=== PATIENT | male | born 1975 | race Caucasian/White ===

== ENCOUNTER 2016-10-22 00:15 | Inpatient (IN) | payer OTHER ==
[~2016-10-22] VITALS: Ht 195.5 cm; Wt 177.0 kg
[2016-10-22] VITALS (13 sets, daily range): BP systolic 115–138; BP diastolic 69–97
--- NOTE | ~2016-10-22 | O ---
[place], [place] OPERATIVE NOTE [id number] UNIT #: [id number] ROOM: [facility] DOCTOR: KENNY ASHBY MD BIRTHDATE: [birth year] DOS: 10/22/2016 PREOPERATIVE DIAGNOSIS: Acute appendicitis. POSTOPERATIVE DIAGNOSIS: Acute appendicitis. PROCEDURE: Laparoscopic appendectomy. SURGEON: Kenny Ashby MD DIAMOND SIZER AND GRADER: MS3. ANESTHESIA: General with endotracheal intubation. INDICATIONS: This is a 41-year-old male who presented to the Emergency Room with abdominal pain and was found to have acute appendicitis. It was decided to take the patient to the operating room for a laparoscopic possible open appendectomy. The procedure and its complications were explained to the patient in detail preoperatively. Complications that were discussed included but were not limited to bleeding, infection, hematoma/seroma/abscess formation, prolonged postoperative pain, and damage to underlying vital structures agreed to proceed. DESCRIPTION OF PROCEDURE: After identifying the patient, the patient was brought to the operating suite and laid in the supine position. After induction of general anesthesia, a timeout procedure was called and the left upper extremity was tucked to the patient's side. A Suero catheter was placed and the parts were then painted and draped in the usual sterile fashion. An incision in the region of the umbilicus was made. The skin and the subcutaneous tissue were incised in the line of the incision. The fascial edges were held apart with the help of 2 stay sutures with 0 Vicryl. The peritoneum was entered and a Paulino port was introduced, a pneumoperitoneum was created. A left lower quadrant incision of 10 mm and a 5 mm incision was made in the suprapubic region and appropriate size ports were introduced. The patient was placed in Trendelenburg, right side up position. The cecum was identified and mobilized medially. The appendix was visualized and was found to be in post ileal position. It was held up with the help of an Endo [place] forceps. Thereafter, the base of the appendix as well as the mesoappendix was stapled across with the help of an Endo-DONYA stapler. The appendix was placed in an EndoCatch bag and removed from the peritoneal cavity and sent for histopathological diagnosis. The stump of the appendix was visualized for bleeding and there was no bleeding seen. Saline was used for irrigation and the irrigation fluid was then sucked away after hemostasis was confirmed again in the stump of the appendix. The left lower quadrant and the suprapubic ports were removed and there was no bleeding seen. The umbilical port was also removed and the 2 stay sutures were tied together. An additional #0 Vicryl stitch was used to close the fascial defect. Thereafter, local anesthesia was infiltrated in all the 3 incisions (1% plain lidocaine) and the skin edges were then approximated with the help of 4-0 Vicryl in a subcuticular running fashion. Dressings were placed on all the three incisions. The patient tolerated the procedure well. There were no [place], [place] OPERATIVE NOTE NAME: ALLEGRA HAWK UNIT #: [id number] ROOM: [facility] DOCTOR: KENNY ASHBY MD BIRTHDATE: [birth year] complications. He was extubated uneventfully and the Suero catheter was also removed and taken to the recovery room in stable fashion. Blood loss was less than [address] Kenny Ashby, the attending surgeon, was present throughout the operating case. Kenny Ashby MD CM:OPRECORD:OPERATIVE NOTE [id number] KENNY ASHBY MD 10/22/16 1040 interface
[~2016-10-22 00:15] MED LIST: ANAPROX DS550 MG PO; BACTROBAN OINT22 GM PO; DAYPRO600 M1 PO; FLEXARIL; FLEXERIL5 MG PO; HYDROCODONE BIT1 T11 PO; ISOSORBIDE MONO PO; LOPRESSOR25 MG; LORAT; LORATADINE10 MG PO; Lopressor25 MG PO; NEURONTIN100 MG; NEURONTIN100 MG PO; NO HOMEMEDS; OXYCONTIN15 MG PO; PERCO; PERCOCET 500 MG1 TAB PO; PREDNISONE10 MG PO; PRILOSEC; PRILOSEC20 M1 PO; ROBAXIN-750750 MG PO; ROBAXIN750 MG PO; SYNTHROID; SYNTHROID0.025 MG PO; SYNTHROID0.05 MG PO; ULTRAM50 MG PO; VENTOLIN H0.09 MG/AC INH; VICODIN 500 MG-1 TAB PO; Zofran4 MG PO
[2016-10-22] MEDS ORDERED: OMEPRAZOLE D/R20 MG PO (00:25)
[2016-10-22 01:08] LABS: BASO # 0.1 10*3/uL (0.0-0.1); BASO % 0.5 % (0.0-1.0); EOS # 0.2 10*3/uL (0.0-0.4); EOS % 1.4 % (1.0-4.0); HEMATOCRIT 44.9 % (42.0-52.0); HEMOGLOBIN 15.4 g/dl (14.0-18.0); IG # 0.1 10*3/uL (0.0-0.1); LYMPH # 3.7 10*3/uL (1.3-4.4); LYMPH % 24.1 % (27.0-41.0); MEAN CELL VOLUME 81.9 fl (80.0-94.0); MEAN CORPUSCULAR HGB 28.1 pg (27.0-31.0); MEAN CORPUSCULAR HGB CONC 34.3 g/dl (33.0-37.0); MEAN PLATELET VOLUME 10.1 fl (9.6-12.3); MONO # 1.3 10*3/uL (0.1-1.0); MONO % 8.7 % (3.0-9.0); NEUT # 9.9 10*3/uL (2.3-7.9); NEUT % 64.5 % (47.0-73.0); PLATELET COUNT AUTOMATED 226 10*3/uL (130-400); RED BLOOD COUNT 5.48 10*6/uL (4.50-5.90); RED CELL DISTRI WIDTH 13.4 % (0-14.5); WHITE BLOOD COUNT 15.3 10*3/uL (4.8-10.8)
[2016-10-22 01:41] LABS: ALBUMIN 3.3 gm/dl (3.1-4.5); ALKALINE PHOSPHATASE 70 U/L (45-117); BILIRUBIN, TOTAL 0.3 mg/dl (0.2-1.0); BUN 15 mg/dl (7-24); C-REACTIVE PROTEIN 2.02 MG/DL (0-0.3); CARBON DIOXIDE 26 mmol/L (21-32); CHLORIDE 105 mmol/L (98-107); EST GLOM FILT AFRICAN AMERICAN > 60 ml/min; GLUCOSE 127 mg/dL (65-99); POTASSIUM 3.7 mmol/L (3.5-5.1); SGOT/AST 15 IU/L (3-35); SGPT/ALT 29 U/L (12-78); SODIUM 141 mmol/L (136-145); TOTAL PROTEIN 6.9 gm/dL (6.4-8.2)
[2016-10-22 06:30] LABS: BASO # 0.1 10*3/uL (0.0-0.1); BASO % 0.5 % (0.0-1.0); EOS # 0.2 10*3/uL (0.0-0.4); EOS % 1.7 % (1.0-4.0); HEMATOCRIT 44.2 % (42.0-52.0); HEMOGLOBIN 14.5 g/dl (14.0-18.0); IG # 0.1 10*3/uL (0.0-0.1); LYMPH # 2.9 10*3/uL (1.3-4.4); LYMPH % 24.8 % (27.0-41.0); MEAN CELL VOLUME 83.7 fl (80.0-94.0); MEAN CORPUSCULAR HGB 27.5 pg (27.0-31.0); MEAN CORPUSCULAR HGB CONC 32.8 g/dl (33.0-37.0); MEAN PLATELET VOLUME 9.9 fl (9.6-12.3); MONO # 1.1 10*3/uL (0.1-1.0); MONO % 9.4 % (3.0-9.0); NEUT # 7.2 10*3/uL (2.3-7.9); NEUT % 62.6 % (47.0-73.0); PLATELET COUNT AUTOMATED 200 10*3/uL (130-400); RED BLOOD COUNT 5.28 10*6/uL (4.50-5.90); RED CELL DISTRI WIDTH 13.2 % (0-14.5); WHITE BLOOD COUNT 11.5 10*3/uL (4.8-10.8)
[2016-10-22 07:03] LABS: BUN 14 mg/dl (7-24); CARBON DIOXIDE 24 mmol/L (21-32); CHLORIDE 104 mmol/L (98-107); CHOLESTEROL 125 mg/dL (<200); EST GLOM FILT AFRICAN AMERICAN > 60 ml/min; FREE T4 1.16 ng/dl (0.76-1.46); GLUCOSE 123 mg/dL (65-99); HDL CHOLESTEROL 32 mg/dl (40-60); LDL CHOLESTEROL 73 mg/dL (9-159); MAGNESIUM 1.9 mg/dL (1.5-2.1); SODIUM 141 mmol/L (136-145); TRIGLYCERIDES 102 mg/dl (<150); VLDL CHOLESTEROL 20 mg/dL (6-40)
[2016-10-22 07:12] LABS: PROTHROMBIN TIME 10.8 SECONDS (9.0-12.4)
[2016-10-22] MEDS ORDERED: ZANTAC 150150 MG PO (07:41)
[2016-10-22 07:50] LABS: FOLIC ACID 6.82 ng/mL (>5.38); VITAMIN D, 25-HYDROXY 11.4 ng/mL (30-100)
[2016-10-22 08:32] LABS: BILIRUBIN NEGATIVE (NEGATIVE); BLOOD NEGATIVE (NEGATIVE); CLARITY SL CLOUDY (CLEAR); COLOR YELLOW (YELLOW); GLUCOSE NEGATIVE (NEGATIVE); KETONE NEGATIVE (NEGATIVE); LEUKO ESTERASE NEGATIVE (NEGATIVE); NITRITE NEGATIVE (NEGATIVE); PROTEIN TRACE (NEGATIVE); SPECIFIC GRAVITY 1.025 (1.005-1.030)
[2016-10-22 08:38] LABS: RBC 0-2 rbc/hpf (0-2); URINE REFLEX COMMENT NO (NO); WBC 0-2 wbc/hpf (0-5)
[2016-10-23] VITALS: BP 108/56
[2016-10-23 06:36] LABS: BASO % 0.2 % (0.0-1.0); HEMATOCRIT 42.3 % (42.0-52.0); HEMOGLOBIN 14.2 g/dl (14.0-18.0); IG # 0.2 10*3/uL (0.0-0.1); LYMPH # 2.2 10*3/uL (1.3-4.4); LYMPH % 13.4 % (27.0-41.0); MEAN CELL VOLUME 83.4 fl (80.0-94.0); MEAN CORPUSCULAR HGB CONC 33.6 g/dl (33.0-37.0); MONO % 6.3 % (3.0-9.0); NEUT # 12.9 10*3/uL (2.3-7.9); PLATELET COUNT AUTOMATED 232 10*3/uL (130-400); RED BLOOD COUNT 5.07 10*6/uL (4.50-5.90); RED CELL DISTRI WIDTH 13.2 % (0-14.5); WHITE BLOOD COUNT 16.3 10*3/uL (4.8-10.8)
[2016-10-23 07:08] LABS: CHLORIDE 108 mmol/L (98-107); POTASSIUM 4.1 mmol/L (3.5-5.1); SODIUM 143 mmol/L (136-145)
[2016-10-23 07:16] LABS: ALKALINE PHOSPHATASE 65 U/L (45-117); BILIRUBIN, TOTAL 0.4 mg/dl (0.2-1.0); BUN 12 mg/dl (7-24); CARBON DIOXIDE 24 mmol/L (21-32); EST GLOM FILT AFRICAN AMERICAN > 60 ml/min; GLUCOSE 135 mg/dL (65-99); SGOT/AST 33 IU/L (3-35); SGPT/ALT 96 U/L (12-78); TOTAL PROTEIN 6.7 gm/dL (6.4-8.2)
[2016-10-23 08:00] VITALS: BP 108/54
[2016-10-23 12:00] VITALS: BP 114/53
[2016-10-23] MEDS ORDERED: CIPRO500 MG PO (12:30)
[2016-10-23] MEDS ORDERED: FLAGYL500 MG PO (12:30)
[2016-10-23] MEDS ORDERED: B12,B-12,B 12500 MC1 PO (12:30)
[2016-10-23] MEDS ORDERED: VITAMIN D1000 IU PO (12:30)
[2016-10-23] MEDS ORDERED: Synthroid,Levo50 MCG PO (12:30)
[2016-10-23] MEDS ORDERED: PERCOCET 325 MG1 TA2 PO (13:13)
== END 2016-10-23 13:28 | disposition home or self-care (01) | DRG 342 ==
LOC: ED 00:15 → EDHOLD 03:24 → 5E 03:37
PROVIDERS: Emergency Medicine Emergency Medical Services; Internal Medicine Hospice and Palliative Medicine; Surgery
PROC: 0DTJ4ZZ Resection of Appendix, Percutaneous Endoscopic Approach (ICD-10-PCS; principal; 2016-10-22)
DX: K35.80 Unspecified acute appendicitis (principal); Z68.42 Body mass index [BMI] 45.0-49.9, adult; K76.0 Fatty (change of) liver, not elsewhere classified; E66.01 Morbid (severe) obesity due to excess calories; D72.829 Elevated white blood cell count, unspecified; R73.9 Hyperglycemia, unspecified; J30.89 Other allergic rhinitis; K57.30 Diverticulosis of large intestine without perforation or abscess without bleeding; J30.1 Allergic rhinitis due to pollen; J45.909 Unspecified asthma, uncomplicated; K21.9 Gastro-esophageal reflux disease without esophagitis; Z90.49 Acquired absence of other specified parts of digestive tract; Z82.49 Family history of ischemic heart disease and other diseases of the circulatory system; Z82.5 Family history of asthma and other chronic lower respiratory diseases; Z79.51 Long term (current) use of inhaled steroids; Z79.1 Long term (current) use of non-steroidal anti-inflammatories (NSAID); Z79.899 Other long term (current) drug therapy

== ENCOUNTER 2017-04-01 17:28 | Emergency (ER) | payer OTHER ==
[~2017-04-01] VITALS: Ht 195.5 cm; Wt 176.9 kg
[~2017-04-01 17:28] MED LIST changes: +B12,B-12,B 12500 MC1 PO; +CIPRO500 MG PO; +FLAGYL500 MG PO; +OMEPRAZOLE D/R20 MG PO; +PERCOCET 325 MG1 TA2 PO; +Synthroid,Levo50 MCG PO; +VITAMIN D1000 IU PO; +ZANTAC 150150 MG PO
[2017-04-01 18:08] LABS: BASO # 0.1 10*3/uL (0.0-0.1); BASO % 0.5 % (0.0-1.0); EOS # 0.2 10*3/uL (0.0-0.4); EOS % 1.6 % (1.0-4.0); HEMATOCRIT 45.5 % (42.0-52.0); HEMOGLOBIN 15.2 g/dl (14.0-18.0); LYMPH # 3.5 10*3/uL (1.3-4.4); LYMPH % 28.6 % (27.0-41.0); MEAN CELL VOLUME 83.6 fl (80.0-94.0); MEAN CORPUSCULAR HGB 27.9 pg (27.0-31.0); MEAN CORPUSCULAR HGB CONC 33.4 g/dl (33.0-37.0); MONO # 1.2 10*3/uL (0.1-1.0); MONO % 9.6 % (3.0-9.0); NEUT # 7.1 10*3/uL (2.3-7.9); NEUT % 58.5 % (47.0-73.0); PLATELET COUNT AUTOMATED 220 10*3/uL (130-400); RED BLOOD COUNT 5.44 10*6/uL (4.50-5.90); RED CELL DISTRI WIDTH 13.2 % (0-14.5); WHITE BLOOD COUNT 12.1 10*3/uL (4.8-10.8)
[2017-04-01 18:16] LABS: ACT PARTIAL THROMBO TIME 24.7 SECONDS (20.8-31.5)
[2017-04-01 18:24] LABS: ALBUMIN 3.7 gm/dl (3.1-4.5); ALKALINE PHOSPHATASE 78 U/L (45-117); BUN 13 mg/dl (7-24); CHLORIDE 106 mmol/L (98-107); CKMB 0.7 ng/ml (0.5-3.6); CPK 105 U/L (39-308); CREATININE 0.97 mg/dL (0.70-1.30); LIPASE 85 U/L (73-393); POTASSIUM 3.9 mmol/L (3.5-5.1); SGOT/AST 19 IU/L (3-35); SGPT/ALT 33 U/L (12-78); SODIUM 137 mmol/L (136-145); TOTAL PROTEIN 7.4 gm/dL (6.4-8.2)
[2017-04-01 18:29] LABS: TROPONIN I < 0.015 ng/ml (<0.045)
[2017-04-01] MEDS ORDERED: KETOROLAC10 MG PO (20:23)
== END 2017-04-01 22:47 | disposition home or self-care (01) ==
LOC: ED 17:28
PROVIDERS: Emergency Medicine
DX: G43.909 Migraine, unspecified, not intractable, without status migrainosus (principal); K21.9 Gastro-esophageal reflux disease without esophagitis; J45.909 Unspecified asthma, uncomplicated

== ENCOUNTER 2017-07-24 10:29 | Inpatient (IN) | payer OTHER ==
[~2017-07-24] VITALS: Ht 195.5 cm; Wt 177.5 kg
[2017-07-24] VITALS (10 sets, daily range): BP systolic 94–141; BP diastolic 42–81
[~2017-07-24 10:29] MED LIST changes: +KETOROLAC10 MG PO
[2017-07-24 11:11] LABS: BASO % 0.3 % (0.0-1.0); EOS # 0.1 10*3/uL (0.0-0.4); EOS % 1.3 % (1.0-4.0); HEMATOCRIT 48.1 % (42.0-52.0); LYMPH # 1.1 10*3/uL (1.3-4.4); LYMPH % 14.4 % (27.0-41.0); MEAN CELL VOLUME 83.5 fl (80.0-94.0); MEAN CORPUSCULAR HGB 27.8 pg (27.0-31.0); MEAN CORPUSCULAR HGB CONC 33.3 g/dl (33.0-37.0); MONO # 0.7 10*3/uL (0.1-1.0); MONO % 9.8 % (3.0-9.0); NEUT # 5.4 10*3/uL (2.3-7.9); NEUT % 72.6 % (47.0-73.0); PLATELET COUNT AUTOMATED 168 10*3/uL (130-400); RED BLOOD COUNT 5.76 10*6/uL (4.50-5.90); RED CELL DISTRI WIDTH 13.2 % (0-14.5); WHITE BLOOD COUNT 7.4 10*3/uL (4.8-10.8)
[2017-07-24 11:22] LABS: ACT PARTIAL THROMBO TIME 24.3 SECONDS (20.8-31.5)
[2017-07-24 11:28] LABS: ALBUMIN 3.5 gm/dl (3.1-4.5); ALKALINE PHOSPHATASE 80 U/L (45-117); BUN 13 mg/dl (7-24); CHLORIDE 105 mmol/L (98-107); CREATININE 0.96 mg/dL (0.70-1.30); POTASSIUM 3.8 mmol/L (3.5-5.1); SGOT/AST 29 IU/L (3-35); SGPT/ALT 37 U/L (12-78); SODIUM 135 mmol/L (136-145); TOTAL PROTEIN 7.5 gm/dL (6.4-8.2)
[2017-07-24 11:29] LABS: TROPONIN I < 0.015 ng/ml (<0.045)
[2017-07-25 06:27] LABS: BASO % 0.5 % (0.0-1.0); EOS # 0.1 10*3/uL (0.0-0.4); HEMATOCRIT 44.8 % (42.0-52.0); HEMOGLOBIN 14.8 g/dl (14.0-18.0); LYMPH # 1.6 10*3/uL (1.3-4.4); LYMPH % 29.6 % (27.0-41.0); MEAN CELL VOLUME 85.2 fl (80.0-94.0); MEAN CORPUSCULAR HGB 28.1 pg (27.0-31.0); MEAN PLATELET VOLUME 9.9 fl (9.6-12.3); MONO # 0.9 10*3/uL (0.1-1.0); NEUT # 2.7 10*3/uL (2.3-7.9); NEUT % 49.3 % (47.0-73.0); PLATELET COUNT AUTOMATED 173 10*3/uL (130-400); RED BLOOD COUNT 5.26 10*6/uL (4.50-5.90); RED CELL DISTRI WIDTH 13.3 % (0-14.5); WHITE BLOOD COUNT 5.5 10*3/uL (4.8-10.8)
[2017-07-25 07:03] LABS: ALBUMIN 3.2 gm/dl (3.1-4.5); ALKALINE PHOSPHATASE 91 U/L (45-117); BUN 12 mg/dl (7-24); CHLORIDE 107 mmol/L (98-107); CHOLESTEROL 103 mg/dL (<200); CREATININE 0.86 mg/dL (0.70-1.30); HDL CHOLESTEROL 25 mg/dl (40-60); LDL CHOLESTEROL 64 mg/dL (9-159); PHOSPHOROUS 3.6 mg/dL (2.5-4.9); POTASSIUM 3.7 mmol/L (3.5-5.1); SGOT/AST 19 IU/L (3-35); SGPT/ALT 33 U/L (12-78); SODIUM 139 mmol/L (136-145); TOTAL PROTEIN 6.8 gm/dL (6.4-8.2); TRIGLYCERIDES 71 mg/dl (<150); VLDL CHOLESTEROL 14 mg/dL (6-40)
[2017-07-25 08:00] VITALS: BP 124/79
[2017-07-25 09:01] LABS: VITAMIN D, 25-HYDROXY 15.3 ng/mL (30-100)
[2017-07-25 12:00] VITALS: BP 125/91
[2017-07-25] MEDS ORDERED: VITAMIN D5000 UNI1 PO (13:52)
== END 2017-07-25 15:00 | disposition home or self-care (01) | DRG 313 ==
LOC: ED 10:29 → EDHOLD 12:20 → 5E 12:20
PROVIDERS: Emergency Medicine; Internal Medicine; ADMIT Emergency Medicine
PROC: 4A02XM4 Measurement of Cardiac Total Activity, External Approach (ICD-10-PCS; principal; 2017-07-25)
DX: R07.89 Other chest pain (principal); I25.2 Old myocardial infarction; J18.9 Pneumonia, unspecified organism; K76.0 Fatty (change of) liver, not elsewhere classified; R19.7 Diarrhea, unspecified; K21.9 Gastro-esophageal reflux disease without esophagitis; F41.9 Anxiety disorder, unspecified; D72.810 Lymphocytopenia; R73.9 Hyperglycemia, unspecified; J45.909 Unspecified asthma, uncomplicated; E66.01 Morbid (severe) obesity due to excess calories; G43.909 Migraine, unspecified, not intractable, without status migrainosus; E03.9 Hypothyroidism, unspecified; K57.90 Diverticulosis of intestine, part unspecified, without perforation or abscess without bleeding; Z90.49 Acquired absence of other specified parts of digestive tract; Z68.42 Body mass index [BMI] 45.0-49.9, adult; Z82.49 Family history of ischemic heart disease and other diseases of the circulatory system; Z83.3 Family history of diabetes mellitus; Z83.6 Family history of other diseases of the respiratory system

== ENCOUNTER → 2017-09-08 | Outpatient (CLI) | payer OTHER ==
[~2017-09-08] MED LIST changes: +VITAMIN D5000 UNI1 PO
== END | disposition home or self-care (01) ==
LOC: CT 08-26 10:00
DX: K76.0 Fatty (change of) liver, not elsewhere classified (principal); K42.9 Umbilical hernia without obstruction or gangrene; Z90.49 Acquired absence of other specified parts of digestive tract

== ENCOUNTER 2017-11-13 23:40 | Emergency (ER) | payer OTHER ==
[~2017-11-13] VITALS: Wt 104.3 kg
[2017-11-14 00:26] LABS: BASO % 0.3 % (0.0-1.0); EOS # 0.1 10*3/uL (0.0-0.4); EOS % 1.1 % (1.0-4.0); HEMATOCRIT 48.6 % (42.0-52.0); HEMOGLOBIN 16.4 g/dl (14.0-18.0); LYMPH # 2.2 10*3/uL (1.3-4.4); MEAN CELL VOLUME 81.7 fl (80.0-94.0); MEAN CORPUSCULAR HGB 27.6 pg (27.0-31.0); MEAN CORPUSCULAR HGB CONC 33.7 g/dl (33.0-37.0); MEAN PLATELET VOLUME 9.8 fl (9.6-12.3); MONO # 0.8 10*3/uL (0.1-1.0); MONO % 7.4 % (3.0-9.0); NEUT # 7.8 10*3/uL (2.3-7.9); NEUT % 70.6 % (47.0-73.0); PLATELET COUNT AUTOMATED 205 10*3/uL (130-400); RED BLOOD COUNT 5.95 10*6/uL (4.50-5.90); RED CELL DISTRI WIDTH 13.1 % (0-14.5); WHITE BLOOD COUNT 11.1 10*3/uL (4.8-10.8)
[2017-11-14 00:42] LABS: ALBUMIN 3.5 gm/dl (3.1-4.5); ALKALINE PHOSPHATASE 81 U/L (45-117); BUN 16 mg/dl (7-24); CHLORIDE 107 mmol/L (98-107); CREATININE 1.09 mg/dL (0.70-1.30); LIPASE 225 U/L (73-393); SGOT/AST 51 IU/L (3-35); SGPT/ALT 85 U/L (12-78); SODIUM 139 mmol/L (136-145); TOTAL PROTEIN 7.4 gm/dL (6.4-8.2)
[2017-11-14] MEDS ORDERED: DICYCLOMINE HCL10 MG PO (02:26)
== END 2017-11-14 02:56 | disposition home or self-care (01) ==
LOC: ED 23:40
PROVIDERS: Nurse Practitioner Family
DX: K57.30 Diverticulosis of large intestine without perforation or abscess without bleeding (principal); R10.32 Left lower quadrant pain; E66.01 Morbid (severe) obesity due to excess calories; J45.909 Unspecified asthma, uncomplicated; K21.9 Gastro-esophageal reflux disease without esophagitis; E03.9 Hypothyroidism, unspecified; G43.909 Migraine, unspecified, not intractable, without status migrainosus; Z90.49 Acquired absence of other specified parts of digestive tract; Z98.890 Other specified postprocedural states; Z68.42 Body mass index [BMI] 45.0-49.9, adult; Z79.899 Other long term (current) drug therapy

== ENCOUNTER → 2018-02-13 | Day surgery (SDC) | payer OTHER ==
[2018-02-10 12:52] LABS: BASO % 0.4 % (0.0-1.0); EOS # 0.1 10*3/uL (0.0-0.4); EOS % 1.4 % (1.0-4.0); HEMATOCRIT 48.1 % (42.0-52.0); HEMOGLOBIN 15.5 g/dl (14.0-18.0); LYMPH # 2.7 10*3/uL (1.3-4.4); LYMPH % 29.1 % (27.0-41.0); MEAN CELL VOLUME 84.4 fl (80.0-94.0); MEAN CORPUSCULAR HGB 27.2 pg (27.0-31.0); MEAN CORPUSCULAR HGB CONC 32.2 g/dl (33.0-37.0); MONO # 0.8 10*3/uL (0.1-1.0); NEUT # 5.6 10*3/uL (2.3-7.9); NEUT % 59.5 % (47.0-73.0); PLATELET COUNT AUTOMATED 211 10*3/uL (130-400); RED CELL DISTRI WIDTH 13.9 % (0-14.5); WHITE BLOOD COUNT 9.3 10*3/uL (4.8-10.8)
[2018-02-10 13:08] LABS: CHLORIDE 109 mmol/L (98-107); SODIUM 141 mmol/L (136-145)
[2018-02-10 13:23] LABS: ACT PARTIAL THROMBO TIME 22.4 SECONDS (20.8-31.5); INTERNATIONAL NORM RATIO 0.9 (2.0-3.5)
[2018-02-10 13:38] LABS: BUN 10 mg/dl (7-24); CREATININE 0.89 mg/dL (0.70-1.30); POTASSIUM 4.4 mmol/L (3.5-5.1)
[~2018-02-13] VITALS: Ht 195.5 cm; Wt 176.9 kg
[2018-02-13] VITALS (7 sets, daily range): BP systolic 110–145; BP diastolic 69–78
[~2018-02-13] MED LIST changes: +DICYCLOMINE HCL10 MG PO; +MULTIPLE VITAM1 EAC1 PO; +Percocet 325 MG1 TAB PO
--- NOTE | ~2018-02-13 | O ---
[place], [place] OPERATIVE NOTE NAME: ALLEGRA HAWK UNIT #: [id number] ROOM: DOCTOR: KENNY ASHBY MD BIRTHDATE: [birth year] DOS: 02/13/2018 PREOPERATIVE DIAGNOSIS: Umbilical hernia. POSTOPERATIVE DIAGNOSIS: Umbilical hernia. PROCEDURE: Umbilical hernia repair with mesh (Ventralex, medium). SURGEON: Kenny Ashby MD STEM LEAD FORMER: STEPHANIE. ANESTHESIA: General with endotracheal intubation. INDICATIONS: This is a 42-year-old gentleman with a history of an umbilical hernia who is here for the above-mentioned procedure. The procedure and its complications were explained to the patient in detail preoperatively. Complications that were discussed included but were not limited to bleeding, infection, hematoma/seroma/abscess formation and prolonged postoperative pain, recurrence and damage to lying vital structures. He agreed to proceed. DESCRIPTION OF PROCEDURE: After identifying the patient, the patient was brought to the operating suite and laid in the supine position. After induction of general anesthesia, a timeout procedure was called and the parts were then painted and draped in the usual sterile fashion. An incision was made in the left lateral part of the umbilicus in a semicircular fashion overlying the umbilical hernia. The skin was incised and the hernial sac was identified and was from the surrounding skin and the subcutaneous tissue with the help of electrocautery. Thereafter, the sac was excised and the contents of the sac, which were found to be attached omentum were excised as well after the omentum was cross clamped with the help of a Jenelle clamp. The specimen was sent for histopathological diagnosis. The omentum was allowed to be retracted back into the peritoneal cavity after the cut surface was tied with the help of 0 Vicryl. At this point, the defect was visualized and it was found to be approximately 1 cm in diameter. A medium Ventralex mesh was brought in and placed under the fascia. It was sutured to the overlying fascial defect with the help of 2-0 Prolene in an interrupted fashion. The fascial edge itself was then approximated with the help of interrupted 0 PDS. Thereafter, the subcutaneous tissue was irrigated and approximated with the help of 3-0 Vicryl in a running fashion and the skin edges were approximated with the help of 4-0 Vicryl in a subcuticular running fashion. Dressing was placed over which a binder was placed as well. The patient was extubated uneventfully and brought back to the recovery room in stable fashion. There were no complications. Dr. Kenny Ashby, the attending surgeon, was present throughout the operating case. [place], [place] OPERATIVE NOTE NAME: ALLEGRA HAWK UNIT #: [id number] ROOM: DOCTOR: KENNY ASHBY MD BIRTHDATE: [birth year] Kenny Ashby MD CM:OPRECORD:OPERATIVE NOTE [id number] KENNY ASHBY MD 02/13/18 0923 interface
== END | disposition home or self-care (01) ==
LOC: SDC 02-10 11:00
PROVIDERS: Surgery
DX: K42.9 Umbilical hernia without obstruction or gangrene (principal); K21.9 Gastro-esophageal reflux disease without esophagitis; J45.909 Unspecified asthma, uncomplicated; E03.9 Hypothyroidism, unspecified; E66.01 Morbid (severe) obesity due to excess calories; Z90.49 Acquired absence of other specified parts of digestive tract; Z98.890 Other specified postprocedural states; Z79.899 Other long term (current) drug therapy; Z83.3 Family history of diabetes mellitus; Z82.49 Family history of ischemic heart disease and other diseases of the circulatory system; Z79.01 Long term (current) use of anticoagulants; Z68.42 Body mass index [BMI] 45.0-49.9, adult

== ENCOUNTER → 2018-05-07 | Outpatient (CLI) | payer OTHER ==
[2018-05-07 09:39] LABS: BASO # 0.1 10*3/uL (0.0-0.1); BASO % 0.5 % (0.0-1.0); EOS # 0.2 10*3/uL (0.0-0.4); EOS % 1.7 % (1.0-4.0); HEMATOCRIT 46.9 % (42.0-52.0); HEMOGLOBIN 15.7 g/dl (14.0-18.0); LYMPH # 3.2 10*3/uL (1.3-4.4); LYMPH % 31.6 % (27.0-41.0); MEAN CELL VOLUME 83.8 fl (80.0-94.0); MEAN CORPUSCULAR HGB CONC 33.5 g/dl (33.0-37.0); MEAN PLATELET VOLUME 9.6 fl (9.6-12.3); MONO # 0.9 10*3/uL (0.1-1.0); MONO % 8.5 % (3.0-9.0); NEUT # 5.7 10*3/uL (2.3-7.9); NEUT % 56.7 % (47.0-73.0); PLATELET COUNT AUTOMATED 216 10*3/uL (130-400); RED CELL DISTRI WIDTH 13.2 % (0-14.5)
[2018-05-07 10:14] LABS: ALBUMIN 3.5 gm/dl (3.1-4.5); ALKALINE PHOSPHATASE 93 U/L (45-117); BUN 14 mg/dl (7-24); CHLORIDE 106 mmol/L (98-107); CPK 101 U/L (39-308); CREATININE 0.91 mg/dL (0.70-1.30); FREE T4 0.97 ng/dl (0.76-1.46); POTASSIUM 4.3 mmol/L (3.5-5.1); SGOT/AST 18 IU/L (3-35); SGPT/ALT 46 U/L (12-78); SODIUM 140 mmol/L (136-145); TOTAL PROTEIN 7.6 gm/dL (6.4-8.2)
[2018-05-07 10:49] LABS: VITAMIN D, 25-HYDROXY 25.9 ng/mL (30-100)
[2018-05-11 15:06] LABS: METHYLMALONIC ACID 274 nmol/L (0-378)
== END | disposition home or self-care (01) ==
LOC: LAB 09:13
PROVIDERS: Psychiatry & Neurology Neurology
DX: E53.8 Deficiency of other specified B group vitamins (principal); R25.2 Cramp and spasm; R20.8 Other disturbances of skin sensation; H53.2 Diplopia

== ENCOUNTER → 2018-08-24 | Outpatient (CLI) | payer OTHER ==
[2018-08-25 07:11] LABS: IMMUNOGLOBULIN G, QNT 1051 mg/dL (700-1600); IMMUNOGLOBULIN M, QNT 116 mg/dL (20-172)
[2018-08-25 13:05] LABS: A/G RATIO 1.1 (0.7-1.7); ALBUMIN 3.6 g/dL (2.9-4.4); ALPHA-1-GLOBULIN 0.2 g/dL (0.0-0.4); ALPHA-2-GLOBULIN 0.7 g/dL (0.4-1.0); BETA GLOBULIN 1.3 g/dL (0.7-1.3); GAMMA GLOBULIN 1.2 g/dL (0.4-1.8); GLOBULIN, TOTAL 3.4 g/dL (2.2-3.9); M-SPIKE Not Observed g/dL (Not Observed)
[2018-08-27 13:05] LABS: ACHR BLOCKING AB 085926 20 % (0-25)
[2018-08-28 11:05] LABS: ACHR MODULATING AB 085933 <12 % (0-20)
== END | disposition home or self-care (01) ==
LOC: LAB 13:36
PROVIDERS: Psychiatry & Neurology Neurology
DX: H53.2 Diplopia (principal); R25.2 Cramp and spasm; R25.3 Fasciculation

== ENCOUNTER → 2019-01-29 | Outpatient (CLI) | payer OTHER ==
[~2019-01-29] MED LIST changes: +GLUCOPHAGE500 MG PO; +VITAMIN D32000 UNI1 PO
== END | disposition home or self-care (01) ==
LOC: RESCLI 08:16
DX: R59.0 Localized enlarged lymph nodes (principal); E03.9 Hypothyroidism, unspecified; E66.01 Morbid (severe) obesity due to excess calories; Z79.899 Other long term (current) drug therapy; Z88.8 Allergy status to other drugs, medicaments and biological substances

== ENCOUNTER → 2019-03-04 | Outpatient (CLI) | payer OTHER | LOC: RESCLI 01:19 | DX: K21.9 Gastro-esophageal reflux disease without esophagitis (principal); R59.0 Localized enlarged lymph nodes; E03.9 Hypothyroidism, unspecified; Z79.899 Other long term (current) drug therapy; Z88.8 Allergy status to other drugs, medicaments and biological substances ==

== ENCOUNTER → 2019-03-26 | Outpatient (CLI) | payer OTHER | END | disposition home or self-care (01) | LOC: US 11:00 | DX: R53.83 Other fatigue (principal); I10 Essential (primary) hypertension; I20.0 Unstable angina; R59.0 Localized enlarged lymph nodes ==

== ENCOUNTER → 2019-04-09 | Outpatient (CLI) | payer OTHER | END | disposition home or self-care (01) | LOC: RESCLI 00:37 | DX: R53.82 Chronic fatigue, unspecified (principal); R59.0 Localized enlarged lymph nodes; E55.9 Vitamin D deficiency, unspecified; K21.9 Gastro-esophageal reflux disease without esophagitis; K58.0 Irritable bowel syndrome with diarrhea; E66.01 Morbid (severe) obesity due to excess calories; K57.30 Diverticulosis of large intestine without perforation or abscess without bleeding; Z79.899 Other long term (current) drug therapy ==

== ENCOUNTER → 2019-06-18 | Outpatient (CLI) | payer OTHER | END | disposition home or self-care (01) | LOC: RESCLI 00:46 | DX: K21.9 Gastro-esophageal reflux disease without esophagitis (principal); R53.82 Chronic fatigue, unspecified; R59.0 Localized enlarged lymph nodes; E55.9 Vitamin D deficiency, unspecified; K58.0 Irritable bowel syndrome with diarrhea; E66.01 Morbid (severe) obesity due to excess calories; K57.30 Diverticulosis of large intestine without perforation or abscess without bleeding; R07.81 Pleurodynia; Z79.899 Other long term (current) drug therapy ==

== ENCOUNTER 2020-09-13 22:03 | Emergency (ER) | payer OTHER ==
[~2020-09-13] VITALS: Ht 195.5 cm; Wt 181.4 kg
[2020-09-13 22:37] LABS: BASO # 0.1 10*3/uL (0.0-0.1); BASO % 0.4 % (0.0-1.0); EOS # 0.1 10*3/uL (0.0-0.4); HEMATOCRIT 47.3 % (42.0-52.0); LYMPH # 3.6 10*3/uL (1.3-4.4); LYMPH % 26.3 % (27.0-41.0); MEAN CORPUSCULAR HGB 27.5 pg (27.0-31.0); MEAN CORPUSCULAR HGB CONC 33.2 g/dl (33.0-37.0); MEAN PLATELET VOLUME 10.1 fl (9.6-12.3); MONO # 1.1 10*3/uL (0.1-1.0); MONO % 8.4 % (3.0-9.0); NEUT # 8.5 10*3/uL (2.3-7.9); NEUT % 63.2 % (47.0-73.0); PLATELET COUNT AUTOMATED 223 10*3/uL (130-400); WHITE BLOOD COUNT 13.5 10*3/uL (4.8-10.8)
[2020-09-13 22:54] LABS: ALBUMIN 3.5 gm/dl (3.1-4.5); ALKALINE PHOSPHATASE 110 U/L (45-117); BUN 14 mg/dl (7-24); CHLORIDE 106 mmol/L (98-107); CREATININE 1.22 mg/dL (0.70-1.30); POTASSIUM 3.8 mmol/L (3.5-5.1); SGOT/AST 20 IU/L (3-35); SGPT/ALT 52 U/L (12-78); SODIUM 137 mmol/L (136-145); TOTAL PROTEIN 7.4 gm/dL (6.4-8.2)
== END 2020-09-14 00:30 | disposition home or self-care (01) ==
LOC: ED 22:03
PROVIDERS: Internal Medicine
DX: E11.65 Type 2 diabetes mellitus with hyperglycemia (principal); K21.9 Gastro-esophageal reflux disease without esophagitis; J45.909 Unspecified asthma, uncomplicated; Z79.899 Other long term (current) drug therapy; Z90.49 Acquired absence of other specified parts of digestive tract; Z98.890 Other specified postprocedural states

== ENCOUNTER → 2021-03-22 | Outpatient (CLI) | payer OTHER | END | disposition home or self-care (01) | LOC: RAD 18:15 | PROVIDERS: ATTEND Nurse Practitioner Primary Care | DX: L02.91 Cutaneous abscess, unspecified (principal); R22.0 Localized swelling, mass and lump, head ==

== ENCOUNTER 2021-06-29 17:01 | Emergency (ER) | payer OTHER ==
[~2021-06-29] VITALS: Ht 195.5 cm; Wt 167.8 kg
[2021-06-29] MEDS ORDERED: ZITHROMAX500 MG PO (20:28)
[2021-06-29] MEDS ORDERED: PREDNISONE50 MG PO (20:28)
== END 2021-06-29 20:49 | disposition home or self-care (01) ==
LOC: ED 17:01
DX: J02.9 Acute pharyngitis, unspecified (principal)